=== PATIENT | male | born 1950 | race Caucasian/White ===

== ENCOUNTER 2024-05-23 07:47 | Outpatient (OUT) | payer MEDICARE, SELFPAY ==
--- NOTE | 2024-05-23 07:57 | ECG_ITS ---
The [facility] Test Date: 2024-05-23 Pat Name: OMERO AQUINO Department: Room: - Gender: Male Rate Setter: : 1950 Requested By: EDMUND STEIN Order Number: [id number] Reading MD: CHAITANYA BAUTISTA Measurements Intervals [place] Rate: 77 P: 4 VA: 164 QRS: 52 QRSD: 101 T: 42 QT: 372 QTc: 422 Interpretive Statements SINUS RHYTHM WARNING: DATA QUALITY MAY AFFECT INTERPRETATION No previous ECG available for comparison Electronically Signed On 05-24-2024 5:23:21 EDT by CHAITANYA BAUTISTA
[2024-05-23 09:03] LABS: Basophils Percent Auto 0.5 % (0.2-2.0); Eosinophils Absolute Auto 0.1 10^3/uL (0.0-0.7); Eosinophils Percent Auto 1.1 % (0.9-7.0); Hematocrit 44.4 % (42.0-54.0); Hemoglobin 14.6 g/dL (14.0-18.0); Immature Granulocytes Abs Auto 0.01 10^3/uL (0.00-0.03); Immature Granulocytes Pct Auto 0.2 % (0.0-0.5); Lymphocytes Absolute Auto 1.2 10^3/uL (1.2-3.8); Lymphocytes Percent Auto 21.1 % (20.5-60.0); Mean Corpuscular HGB Conc 32.9 g/dL (29.9-35.2); Mean Corpuscular Hemoglobin 30.9 pg (25.9-34.0); Mean Corpuscular Volume 94.1 fL (80.0-94.0); Mean Platelet Volume 9.2 fL (9.5-13.5); Monocytes Absolute Auto 0.6 10^3/uL (0.3-0.8); Monocytes Percent Auto 10.1 % (1.7-12.0); Neutrophils Absolute Auto 3.7 10^3/uL (1.4-6.5); Platelet Count 235 10^3/uL (150-450); Red Blood Count 4.72 10^6/uL (4.70-6.10); Red Cell Distribution Width 13.2 % (11.0-15.0); White Blood Count 5.5 10^3/uL (4.0-11.0)
--- NOTE | 2024-05-23 09:07 | XR_ITS ---
The [address] [address] Patient Name: OMERO AQUINO MRN: [id number] date: 1950 Sex: M Assigned Patient Location: [facility] Current Patient Location: Accession/Order Number: [id number] Exam Date: 05/23/2024 08:57 Report Date: 05/24/2024 04:38 At the request of: EDMUND STEIN Procedure: XR chest 2V EXAMINATION: XR chest 2V HISTORY: Preop exam COMPARISON: No relevant comparison available. FINDINGS: LUNGS: No significant pulmonary parenchymal abnormalities. VASCULATURE: No increased pulmonary vasculature. PLEURA: No pneumothorax, effusion, or pleural thickening. CARDIAC: No cardiomegaly or cardiac silhouette abnormality. MEDIASTINUM: No visible mass or adenopathy. BONES: No fracture or visible bone lesion. OTHER: Negative. XR/XR chest 2V IMPRESSION: 1. No acute cardiopulmonary process or significant chronic changes. Electronically authenticated by: SHABBIR SRIVASTAVA Date: 05/24/2024 04:38
[2024-05-23 09:19] LABS: Anion Gap 9.6; BUN Creatinine Ratio 19.2; Calcium 8.8 mg/dL (8.5-10.1); Carbon Dioxide 31.3 mmol/L (21.0-32.0); Chloride 102 mmol/L (98-107); Estimated GFR (African America >60 (>=60); Estimated GFR (Non-African Ame >60 (>=60); Glucose 89 mg/dL (74-106); Potassium 4.9 mmol/L (3.5-5.1); Sodium 138 mmol/L (136-145)
== END 2024-05-23 07:48 | disposition home or self-care (01) ==
PROVIDERS: Visit Provider Urology
DX: Z01.810 Encounter for preprocedural cardiovascular examination (principal); Z01.812 Encounter for preprocedural laboratory examination; Z01.818 Encounter for other preprocedural examination; R97.20 Elevated prostate specific antigen [PSA]; N42.89 Other specified disorders of prostate
CPT/HCPCS: 71046; 80048; 85025; 85610; 85730; 93005

== ENCOUNTER 2024-06-04 07:55 | Day surgery (SDC) | payer MEDICARE, SELFPAY ==
[2024-05-23 08:52] VITALS: BP 143/93; PULSE 71; TEMP 36.4; O2SAT 99; BMI 22.7
[2024-06-04 08:11] VITALS: BP 162/99; PULSE 88; TEMP 36.2; O2SAT 99; BMI 19.6; BMI 21.7
[2024-06-04] MEDS: LACTATED RINGER'S SOLUTION 1,000 ML 50 ML IV ×2 (08:21→11:33)
[2024-06-04] MEDS: GENTAMICIN SULFATE 120 MG in 0.9 % SODIUM CHLORIDE 100 ML 206 MG IV (08:26)
[2024-06-04 08:44] LABS: Prothrombin Time 10.6 sec (9.0-11.6)
[2024-06-04 08:47] LABS: Partial Thromboplastin Time 29.3 sec (22.3-36.2)
[2024-06-04] MEDS: CEFAZOLIN SODIUM/DEXTROSE,ISO 1 GM/50 ML IV.SOLN IV (09:47)
[2024-06-04] MEDS: LIDOCAINE 2% JELLY 20 ML UR (10:05)
[2024-06-04 10:30] VITALS: BP 110/74; PULSE 78; TEMP 36.1; O2SAT 97
--- NOTE | 2024-06-04 10:34 | P.URON_ITS ---
Urology Surgery Operative Note Operative Note Procedure Date: 06/04/24 Time Out Performed: yes Pre-op Diagnosis: Elevated PSA Post-op Diagnosis: same as pre-op Procedures performed: 1. Transrectal ultrasound of the prostate. 2. MRI prostate fusion biopsies Anesthesia: MAC and local Primary Surgeon: Pepe Sheldon Complications: None Estimated blood loss (mL): 10 Findings: 1 small lateral area of interest Specimens: 1. 5 biopsies from the area of interest. 2. 6 mapped out biopsies from the right side and the left side. Indications for Procedures: This gentleman has an elevated PSA. It has risen up to 6.4. The free percent was 15.2. His GRACIELA is benign. His MRI revealed a small lesion in the posterior aspect of the right peripheral zone at the mid gland. This was a PI-RADS 4 lesion. He now presents for transrectal ultrasound and MRI fusion biopsies of the prostate. He has signed an informed consent after risks were explained. Some of these risks include bleeding, infection, urosepsis and anesthesia to name a few. Detailed description of Procedure: The patient was brought to the operating room on his [facility] bed. He was in the supine position. He was rotated in the left lateral decubitus position. Timeout was done by all parties in the room. We all agreed upon the patient's identification and the planned procedures for this patient. MAC anesthesia was then administered. 2% lidocaine gel was passed per rectum. The ultrasound probe was passed per rectum. Segmentation was then done so as to fuse the MRI images onto the live ultrasound. We started on the area of interest. We took 5 excellent biopsies from this and sent them separately labeled area of interest. We then did mapped out biopsies on the left side going from the base towards the apex. 6 were obtained. We then did a similar maneuver on the right side. The ultrasound probe was then removed. He was then transferred to PACU in stable condition. He will be sent a prescription for doxycycline for 3 days since he had a mild side effect from his Cipro which he took preoperatively.
[2024-06-04 10:45] VITALS: BP 95/58; PULSE 70; O2SAT 96
[2024-06-04 11:30] VITALS: BP 141/71; PULSE 62; O2SAT 98
--- NOTE | 2024-06-04 11:32 | PC.NURSE ---
54 as 0146 patient was in the bathroom trying to urinate
--- NOTE | 2024-06-04 12:11 | PC.NURSE ---
1210- patient remains up in bathroom. Unable to void.
[2024-06-04 12:25] VITALS: BP 149/75; PULSE 76; O2SAT 97
== END 2024-06-04 12:25 | disposition home or self-care (01) ==
PROVIDERS: Visit Provider Urology
PROC: (CPT 55700; principal; 2024-06-04 09:00)
DX: R97.20 Elevated prostate specific antigen [PSA] (principal); N42.89 Other specified disorders of prostate; Z87.891 Personal history of nicotine dependence; R10.32 Left lower quadrant pain; Z87.442 Personal history of urinary calculi; N52.9 Male erectile dysfunction, unspecified; N40.1 Benign prostatic hyperplasia with lower urinary tract symptoms; E78.5 Hyperlipidemia, unspecified; M19.90 Unspecified osteoarthritis, unspecified site; M54.50 Low back pain, unspecified; R35.1 Nocturia
CPT/HCPCS: 55700; 36415; 85610; 85730; 88305; 88344; J0690; J1580; J2250; J2704; J3010